=== PATIENT | female | born 1970 | race Caucasian/White ===

== ENCOUNTER 2022-12-29 11:10 | Day surgery (SDC) | payer OTHER ==
[2022-12-29] VITALS (8 sets, daily range): BP systolic 82–139; BP diastolic 48–80
[~2022-12-29] VITALS: Ht 160 cm; Wt 61.1 kg
[2022-12-29] MEDS ORDERED: LORazepam 0.5 MG tablet PO PRN (11:25)
[2022-12-29] MEDS ORDERED: diphenhydrAMINE 25mg capsule PO PRN (11:25)
[2022-12-29] MEDS ORDERED: normal saline 1,000 ML IV SCH (11:25)
[2022-12-29] MEDS ORDERED: METO25TA6 PO (11:35)
[2022-12-29] MEDS ORDERED: fentaNYL/PF 50MCG/1 ML 2ML syringe ONE (12:32)
[2022-12-29] MEDS ORDERED: verapamil 2.5 mg/ml inj IV ONE (12:32)
[2022-12-29] MEDS ORDERED: heparin 1,000unit/ml 10ml vial 10 ML ONE (12:33)
[2022-12-29] MEDS ORDERED: midazolam 1 mg/ML 2ml injection ONE (12:33)
[2022-12-29] MEDS ORDERED: iohexol 350MG/ML 100ml bottle IV ONE (12:33)
[2022-12-29] MEDS ORDERED: nitroGLYCERIN-Tridil 50MG/D5W 250 ML IV ONE (12:33)
[2022-12-29] MEDS ORDERED: LIDOcaine 1% (10mg/ml) 2ml vial ONE (13:01)
[2022-12-29] MEDS ORDERED: proCHLORperazine 10 MG/2 ml inj ONE (13:13)
[2022-12-29] MEDS ORDERED: HYDROcodone/acetaminophen 5mg/325mg tablet PO PRN (14:05)
[2022-12-29] MEDS ORDERED: HYDROcodone/acetaminophen 10/325mg tab PO PRN (14:05)
== END 2022-12-29 15:40 | disposition home or self-care (01) ==
LOC: SSTAY O 11:10
PROVIDERS: ATTEND Student in an Organized Health Care Education/Training Program
DX: R07.89 Other chest pain (principal); I25.10 Atherosclerotic heart disease of native coronary artery without angina pectoris; Z79.899 Other long term (current) drug therapy
CPT/HCPCS: 93005; 93458; A6258; C1894; J0780; J1644; J2250; J3010; J3490; J7030; Q0163; Q9967; 99152; A4615; A6402